=== PATIENT | male | born 1995 | race Caucasian/White ===

== ENCOUNTER 2021-05-22 10:21 | Emergency (ER) | payer OTHER ==
[~2021-05-22] VITALS: Ht 188 cm; Wt 83.0 kg
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
[2021-05-22] MEDS ORDERED: MORPHINE SULFATE INJ 2 MG/ML DISP.SYRIN IM ONE (10:30)
[2021-05-22] MEDS ORDERED: ONDANSETRON 4 MG TAB.RAPDIS SL ONE (10:30)
[2021-05-22] MEDS ORDERED: MORPHINE SULFATE INJ 4 MG/ML DISP.SYRIN ONE (10:33)
[2021-05-22] MEDS ORDERED: ONDANSETRON HCL/PF 4 MG/2 ML VIAL ONE (10:33)
[2021-05-22 11:58] VITALS: BP 121/67
--- NOTE | 2021-05-22 11:58 | NUR ---
Patient discharged to home in stable condition. Written and verbal after care instructions given. Patient verbalizes understanding of instruction.
== END 2021-05-22 11:58 | disposition home or self-care (01) ==
LOC: ER 10:23
DX: S83.094A Other dislocation of right patella, initial encounter (principal); S80.12XA Contusion of left lower leg, initial encounter; Z60.2 Problems related to living alone; V19.88XA Pedal cyclist (driver) (passenger) injured in other specified transport accidents, initial encounter; Y93.89 Activity, other specified; Y92.89 Other specified places as the place of occurrence of the external cause; Y99.8 Other external cause status
CPT/HCPCS: 27560; 73560; 73590; 96372; 99284; J2270; J2405